=== PATIENT | male | born 1970 | race Two or more races ===

== ENCOUNTER 2019-12-29 08:47 | Emergency (ER) | payer MEDICAID ==
[~2019-12-29] VITALS: Ht 165.1 cm; Wt 81.6 kg
[2019-12-29] MEDS ORDERED: cloNIDine HCL 0.1 MG TAB ONE (09:06)
[2019-12-29] MEDS ORDERED: cloNIDine HCL 0.1 MG TAB PO ONE (09:15)
[2019-12-29] MEDS ORDERED: KETOROLAC TROMETH 60MG/2ML VIAL IM ONE (09:30)
[2019-12-29 10:28] VITALS: BP 158/102
== END 2019-12-29 10:30 | disposition home or self-care (01) ==
LOC: ER 08:47
DX: M17.12 Unilateral primary osteoarthritis, left knee (principal); I10 Essential (primary) hypertension
CPT/HCPCS: 73562; 96372; 99283; J1885